=== PATIENT | male | born 1995 | race Caucasian/White ===

== ENCOUNTER 2018-12-05 20:11 | Emergency (ER) | payer OTHER ==
[2018-12-05] MEDS ORDERED: Tetracaine 0.5% OPHTH SOLN/PF 4 ML BOT ONE (20:23)
[2018-12-05] MEDS ORDERED: Gentamicin 80 MG/2 ML VIAL ONE (20:42)
[2018-12-05] MEDS ORDERED: Tobramycin Sulfate 0.3% Ophth Susp 5 ml Bottle ONE (20:43)
== END 2018-12-05 20:53 | disposition home or self-care (01) ==
LOC: MADERS 20:11
DX: S05.01XA Injury of conjunctiva and corneal abrasion without foreign body, right eye, initial encounter (principal); F84.0 Autistic disorder; W22.8XXA Striking against or struck by other objects, initial encounter
CPT/HCPCS: 99283; J1580

== ENCOUNTER 2019-08-21 22:29 | Emergency (ER) | payer OTHER ==
[2019-08-21] MEDS ORDERED: Sulfameth/Trimethoprim DS 800-160mg TAB ONE (22:58)
[2019-08-21] MEDS ORDERED: Fluconazole 100 MG TAB ONE (22:58)
== END 2019-08-21 23:02 | disposition home or self-care (01) ==
LOC: MADERS 22:29
DX: L03.211 Cellulitis of face (principal); B35.4 Tinea corporis; T78.40XA Allergy, unspecified, initial encounter; F84.0 Autistic disorder; Z79.899 Other long term (current) drug therapy
CPT/HCPCS: 99283

== ENCOUNTER 2021-07-06 13:09 | Emergency (ER) | payer OTHER | END 2021-07-06 13:50 | disposition home or self-care (01) | LOC: MADERS 13:09 | DX: H60.91 Unspecified otitis externa, right ear (principal) | CPT/HCPCS: 99283 ==